=== PATIENT | male | born 1940 | race Caucasian/White ===

== ENCOUNTER 2021-11-23 11:50 | Day surgery (SDC) | payer OTHER ==
[2021-11-22 16:20] LABS: BASOPHILS % (AUTO) 0.2 % (0.0-5.0); EOSINOPHILS % (AUTO) 0.8 % (0.0-8.0); HEMATOCRIT 23.2 % (42-54); LYMPHOCYTES % (AUTO) 20.3 % (21.0-51.0); MEAN CORPUSCULAR HEMOGLOBIN 25.7 pg (27.0-33.0); MEAN CORPUSCULAR HGB CONC 31.5 g/dL (32.0-36.0); MEAN CORPUSCULAR VOLUME 81.7 fL (79-99); MONOCYTES % (AUTO) 6.3 % (3.0-13.0); NEUTROPHILS % (AUTO) 71.9 % (40.0-77.0); PLATELET COUNT (AUTO) 269 K/uL (130-400); RED BLOOD CELL COUNT(AUTO) 2.84 MIL/uL (4.50-6.20); RED CELL DISTRIBUTION WIDTH 17.5 % (11.0-15.5); WHITE BLOOD COUNT (AUTO) 9.7 K/uL (4.8-10.8)
[2021-11-22 16:34] LABS: INR 1.09 (0.85-1.15); PROTHROMBIN TIME 11.8 SEC (9.6-11.6)
[2021-11-22 16:35] LABS: PARTIAL THROMBOPLASTIN TIME 27.7 SEC (26.3-35.5)
[2021-11-22 17:01] LABS: CREATININE 1.6 mg/dL (0.5-1.5); POTASSIUM 3.5 mmol/L (3.5-5.1)
[~2021-11-23] VITALS: Ht 172.7 cm; Wt 98.7 kg
[2021-11-23] VITALS (13 sets, daily range): BP systolic 108–136; BP diastolic 25–44
[~2021-11-23 11:50] MED LIST: 0.9% NACL 500ML IV.SOLN 500 ML IV SCH; ALLO300T2 PO; ASCO500C18 PO; ATOR10TA PO; BUME2TAB5 PO; CETI-89 PO; DOXA4TAB3 PO; FERR324T4 PO; FOLI0.8T22 PO; GABA600T10 PO; HYDR100T27 PO; INSLAN SQ; INSNOV SQ; ISOS30TA92 PO; LEVO25TA9 PO; LOSA100T2 PO; MAGNESIUM PO; NIFE90TA65 PO; OMEG-125 PO; PANT40TA55 PO; POTA-202 PO; VIT-32 PO; VITA1TAB22 PO; VITAMIN B12 PO; VITAMIN C PO; VITAMIN D3 PO
[2021-11-23] MEDS ORDERED: 0.9%NACL 1000ML 1,000 ML IV ONE (12:20)
[2021-11-23] MEDS ORDERED: FLUMAZENIL 0.1MG/1ML 5ML VIAL IV ONE (12:41)
[2021-11-23] MEDS ORDERED: LIDOCAINE HCL 2% VISCOUS 15 ML UDCUP ONE (12:41)
[2021-11-23] MEDS ORDERED: MIDAZOLAM HCL 1 MG/ML 2ML VIAL ONE (12:42)
[2021-11-23] MEDS ORDERED: NALOXONE HCL 0.4 MG/1 ML ML ONE (12:42)
[2021-11-23] MEDS ORDERED: FENTANYL CITRATE PF 50 MCG/1 ML 2ML VIAL ONE (12:42)
== END 2021-11-23 14:40 | disposition home or self-care (01) ==
LOC: DAH 11:50
PROVIDERS: ATTEND Student in an Organized Health Care Education/Training Program
DX: I48.21 Permanent atrial fibrillation (principal); I08.1 Rheumatic disorders of both mitral and tricuspid valves; I25.10 Atherosclerotic heart disease of native coronary artery without angina pectoris; I44.1 Atrioventricular block, second degree; E11.9 Type 2 diabetes mellitus without complications; I10 Essential (primary) hypertension; E78.5 Hyperlipidemia, unspecified; E03.9 Hypothyroidism, unspecified; G47.33 Obstructive sleep apnea (adult) (pediatric); E66.8 Other obesity; Z79.82 Long term (current) use of aspirin; Z79.899 Other long term (current) drug therapy; Z82.49 Family history of ischemic heart disease and other diseases of the circulatory system; Z88.8 Allergy status to other drugs, medicaments and biological substances; Z98.890 Other specified postprocedural states; Z79.01 Long term (current) use of anticoagulants; Z95.1 Presence of aortocoronary bypass graft
CPT/HCPCS: 36415; 80048; 82948; 85025; 85610; 85730; 92960; 93005; 93312; 93325; A4215; A4216; A4221; A4222; A4223 ×3; A4606; A4657; A4663; J2250; J3010; J7030; 96374; 99152; 99153; J2310; J3490

== ENCOUNTER 2022-02-01 07:45 | Observation (INO) | payer OTHER ==
[2022-01-31 11:00] LABS: BASOPHILS % (AUTO) 0.2 % (0.0-5.0); EOSINOPHILS % (AUTO) 1.1 % (0.0-8.0); HEMATOCRIT 29.7 % (42-54); LYMPHOCYTES % (AUTO) 12.5 % (21.0-51.0); MEAN CORPUSCULAR HEMOGLOBIN 26.6 pg (27.0-33.0); MEAN CORPUSCULAR HGB CONC 30.3 g/dL (32.0-36.0); MEAN CORPUSCULAR VOLUME 87.9 fL (79-99); PLATELET COUNT (AUTO) 236 K/uL (130-400); RED BLOOD CELL COUNT(AUTO) 3.38 MIL/uL (4.50-6.20); RED CELL DISTRIBUTION WIDTH 21.5 % (11.0-15.5); WHITE BLOOD COUNT (AUTO) 8.4 K/uL (4.8-10.8)
[2022-01-31 11:12] LABS: CREATININE 1.7 mg/dL (0.5-1.5); POTASSIUM 3.8 mmol/L (3.5-5.1)
[2022-01-31 11:41] LABS: INR 1.04 (0.85-1.15); PROTHROMBIN TIME 11.3 SEC (9.6-11.6)
[2022-01-31 11:42] LABS: PARTIAL THROMBOPLASTIN TIME 28.7 SEC (26.3-35.5)
[2022-01-31 12:41] VITALS: BP 140/58
[2022-02-01] VITALS (12 sets, daily range): BP systolic 117–149; BP diastolic 46–62
[~2022-02-01] VITALS: Ht 172.7 cm; Wt 97.2 kg
[~2022-02-01 07:45] MED LIST changes: -0.9% NACL 500ML IV.SOLN 500 ML IV SCH; -FERR324T4 PO; +NIFE-40 PO; -NIFE90TA65 PO; -VITAMIN C PO
[2022-02-01] MEDS ORDERED: 0.9%NACL 1000ML 1,000 ML IV ONE (07:50)
[2022-02-01] MEDS ORDERED: IOHEXOL-350 75 ML VIAL IV ONE (10:21)
[2022-02-01] MEDS ORDERED: LIDOCAINE HCL 400MG/20ML VIAL ONE (10:21)
[2022-02-01] MEDS ORDERED: MIDAZOLAM HCL 1 MG/ML 2ML VIAL ONE (11:03)
[2022-02-01] MEDS ORDERED: FENTANYL CITRATE PF 50 MCG/1 ML 2ML VIAL ONE ×2 (11:05→11:09)
[2022-02-01] MEDS ORDERED: MEPERIDINE-PF 25 MG/ML SYG ONE ×2 (11:06→11:36)
[2022-02-01] MEDS ORDERED: HEPARIN 10,000 UNIT/10ML (1,000 UNIT/ML) VIAL ONE (11:50)
[2022-02-01] MEDS: INSULIN LISPRO 100 UNIT/ML 3ML SQ SCH (17:00)
[2022-02-01] MEDS ORDERED: DOXAZOSIN MESYLATE 2 MG TABLET PO SCH (21:00)
[2022-02-01] MEDS ORDERED: BUMETANIDE 2 MG PO SCH (21:00)
[2022-02-01] MEDS ORDERED: ATORVASTATIN 10 MG TABLET PO SCH (21:00)
[2022-02-01] MEDS ORDERED: INSULIN GLARGINE 100 UNITS/ML 10 ML VIAL SQ SCH (21:00)
[2022-02-01] MEDS ORDERED: BUMETANIDE 1 MG TAB PO SCH (21:00)
[2022-02-01] MEDS ORDERED: NIFEDIPINE ER 30 MG TAB PO SCH (21:00)
[2022-02-01] MEDS: FISH OIL 1000 MG/CAP PO SCH (22:10)
[2022-02-01] MEDS: KCL 20 MEQ ERTAB PO SCH (22:11)
[2022-02-01] MEDS: GABAPENTIN 300 MG CAPSULE PO SCH (22:12)
[2022-02-01] MEDS: HYDRALAZINE 25MG TABLET PO SCH (22:13)
[2022-02-01] MEDS: ASCORBIC ACID 500 MG TAB PO SCH (22:18)
[2022-02-02 03:34] VITALS: BP 130/52
[2022-02-02] MEDS ORDERED: LEVOTHYROXINE 25 MCG TABLET ONE (05:14)
[2022-02-02] MEDS ORDERED: LEVOTHYROXINE 25 MCG TABLET PO SCH (06:30)
[2022-02-02 06:55] VITALS: BP 144/53
[2022-02-02] MEDS: INSULIN LISPRO 100 UNIT/ML 3ML SQ SCH ×2 (07:31→11:33)
[2022-02-02] MEDS: ASCORBIC ACID 500 MG TAB PO SCH (08:21)
[2022-02-02] MEDS: HYDRALAZINE 25MG TABLET PO SCH (08:21)
[2022-02-02] MEDS: GABAPENTIN 300 MG CAPSULE PO SCH (08:27)
[2022-02-02] MEDS: FISH OIL 1000 MG/CAP PO SCH (08:27)
[2022-02-02] MEDS: KCL 20 MEQ ERTAB PO SCH (08:28)
[2022-02-02] MEDS ORDERED: ALLOPURINOL 300 MG TABLET PO SCH (09:00)
[2022-02-02] MEDS ORDERED: INSULIN GLARGINE 100 UNITS/ML 10 ML VIAL SQ SCH (09:00)
[2022-02-02] MEDS ORDERED: BUMETANIDE 4 MG PO SCH (09:00)
[2022-02-02] MEDS ORDERED: Vitamin B Complex/Vit C/Folic Acid PO SCH (09:00)
[2022-02-02] MEDS ORDERED: CETIRIZINE HCL 5 MG TABLET PO SCH (09:00)
[2022-02-02] MEDS ORDERED: ISOSORBIDE MONO 30MG SR TAB PO SCH (09:00)
[2022-02-02] MEDS ORDERED: BUMETANIDE 1 MG TAB PO SCH (09:00)
[2022-02-02] MEDS ORDERED: PANTOPRAZOLE 40 MG TAB DR PO SCH (09:00)
[2022-02-02] MEDS ORDERED: NON-FORMULARY MEDICATION 1 EACH (Cetirizine HCl (Zyrtec) 10 MG) PO SCH (09:00)
[2022-02-02 11:25] VITALS: BP 142/65
[2022-02-02] MEDS ORDERED: ONDANSETRON 4MG INJ IVP PRN (11:30)
[2022-02-02] MEDS ORDERED: LOSARTAN 100 MG TABLET PO SCH (12:00)
== END 2022-02-02 13:05 | disposition home or self-care (01) ==
LOC: DAH 07:45 → DAHIP 07:46 → DAH 07:46 → 4BH 18:37
PROVIDERS: ADMIT Internal Medicine Cardiovascular Disease; ATTEND Internal Medicine Cardiovascular Disease
DX: I49.5 Sick sinus syndrome (principal); I48.21 Permanent atrial fibrillation; I25.10 Atherosclerotic heart disease of native coronary artery without angina pectoris; Z79.899 Other long term (current) drug therapy
CPT/HCPCS: 33274; 36415; 71045; 80048; 82948 ×5; 85025; 85610; 85730; 93005 ×2; 96372; 96374; A4215; A4216; A4221; A4222; A4223 ×3; A4606; A4663; C1769 ×2; C1785; C1894; G0378 ×24; J1644 ×3; J2175 ×2; J2250; J2405; J3010; J3490; J7030; Q9967; 99156; 99157

== ENCOUNTER → 2023-06-07 | Outpatient (CLI) | payer OTHER ==
[~2023-06-07] MED LIST changes: -LOSA100T2 PO; +LOSA100T3 PO
== END | disposition home or self-care (01) ==
LOC: SHCH 08:33
PROVIDERS: ATTEND Internal Medicine Cardiovascular Disease
DX: I87.2 Venous insufficiency (chronic) (peripheral) (principal)
CPT/HCPCS: 93970

== ENCOUNTER 2024-10-16 11:33 | Day surgery (SDC) | payer OTHER ==
--- NOTE | 2024-10-14 12:48 | EKG ---
[facility] Test Date: 2024-10-14 Test Time: 13:45:37 Pat Name: STEPHEN RILLTON Department[facility] Room: Gender: M Contamination Consultant: [id number] : 1940 Requested By: YOLANDA LAM Order Number: [id number] Reading MD: Fermin Obregon Measurements Intervals [place] Rate: 42 P: 0 MT: 0 QRS: 7 QRSD: 96 T: 24 QT: 536 QTc: 447 Interpretive Statements Junctional bradycardia to 42 bpm Compared to ECG 02/01/2022 13:25:17 Ventricular-paced complex(es) or rhythm no longer present Electronically Signed On 10-14-2024 19:19:22 ROOFING APPRENTICE by Fermin Obregon Please click the below link to view image of tracing.
[2024-10-14 12:53] LABS: BASOPHILS # (AUTO) 0.05 K/uL (0.00-0.20); BASOPHILS % (AUTO) 0.4 % (0.0-5.0); EOSINOPHILS # (AUTO) 0.11 K/uL (0.00-0.70); EOSINOPHILS % (AUTO) 0.9 % (0.0-8.0); HEMATOCRIT 37.1 % (42-54); LYMPHOCYTES # (AUTO) 1.4 K/uL (1.0-4.8); LYMPHOCYTES % (AUTO) 11.7 % (21.0-51.0); MEAN CORPUSCULAR HEMOGLOBIN 29.7 pg (27.0-33.0); MEAN CORPUSCULAR HGB CONC 31.5 g/dL (32.0-36.0); MEAN CORPUSCULAR VOLUME 94.2 fL (79-99); MONOCYTES # (AUTO) 0.8 K/uL (0.1-1.0); MONOCYTES % (AUTO) 6.8 % (3.0-13.0); NEUTROPHILS # (AUTO) 9.8 K/uL (1.8-7.7); NEUTROPHILS % (AUTO) 79.4 % (40.0-77.0); PLATELET COUNT (AUTO) 350 K/uL (130-400); RED BLOOD CELL COUNT(AUTO) 3.94 MIL/uL (4.50-6.20); RED CELL DISTRIBUTION WIDTH 13.9 % (11.0-15.5); WHITE BLOOD COUNT (AUTO) 12.3 K/uL (4.8-10.8)
[2024-10-14 12:55] VITALS: BP 126/50; PULSE 45; RESP 18; TEMP 97.1
[2024-10-14 13:05] LABS: CREATININE 1.7 mg/dL (0.5-1.3); POTASSIUM 3.7 mmol/L (3.5-5.1)
[2024-10-14 13:08] LABS: INR 1.06 (0.85-1.15); PROTHROMBIN TIME 11.4 SEC (9.6-11.6)
[2024-10-14 13:09] LABS: PARTIAL THROMBOPLASTIN TIME 28.7 SEC (26.3-35.5)
--- NOTE | 2024-10-15 10:00 | NUR ---
RE: LABS REPORTED CREAT 1.[address] RESULTS [address] DR LAM, PATIENT ASYMPTOMATIC. RECEIVED ORDERS TO RECHECK CBC IN AM.
[~2024-10-16] VITALS: Ht 172.7 cm; Wt 92.5 kg
[2024-10-16] VITALS (7 sets, daily range): BP systolic 118–157; BP diastolic 48–67; PULSE 44–60; RESP 13–18; TEMP 97.4–97.9
[~2024-10-16 11:33] MED LIST changes: +ALBU18HF7 IH; -ALLO300T2 PO; +ALLO300T27 PO; -ASCO500C18 PO; +CARB-39 PO; +FERS325 PO; +GABA300C PO; -GABA600T10 PO; +HYDR100T15 PO; -HYDR100T27 PO; +LOSA-420 PO; -LOSA100T3 PO; +MAGN400T53 PO; -MAGNESIUM PO; +MELA3TAB41 PO; +NIFE-39 PO; -NIFE-40 PO; -POTA-202 PO; +SPIR25TA6 PO; -VIT-32 PO; +VIT1CAPS47 PO; -VITA1TAB22 PO; -VITAMIN D3 PO
[2024-10-16] MEDS: 0.9%NACL 1000ML 1,000 ML IV SCH (12:18)
[2024-10-16 12:26] LABS: BASOPHILS # (AUTO) 0.04 K/uL (0.00-0.20); BASOPHILS % (AUTO) 0.4 % (0.0-5.0); EOSINOPHILS # (AUTO) 0.06 K/uL (0.00-0.70); EOSINOPHILS % (AUTO) 0.5 % (0.0-8.0); HEMATOCRIT 34.2 % (42-54); IMMATURE GRANULOCYTE ABSOLUTE 0.06 K/uL (0-1); LYMPHOCYTES # (AUTO) 1.5 K/uL (1.0-4.8); LYMPHOCYTES % (AUTO) 13.1 % (21.0-51.0); MEAN CORPUSCULAR HEMOGLOBIN 30.4 pg (27.0-33.0); MEAN CORPUSCULAR VOLUME 91.9 fL (79-99); MONOCYTES # (AUTO) 0.7 K/uL (0.1-1.0); MONOCYTES % (AUTO) 6.7 % (3.0-13.0); NEUTROPHILS # (AUTO) 8.8 K/uL (1.8-7.7); NEUTROPHILS % (AUTO) 78.8 % (40.0-77.0); PLATELET COUNT (AUTO) 370 K/uL (130-400); RED BLOOD CELL COUNT(AUTO) 3.72 MIL/uL (4.50-6.20); WHITE BLOOD COUNT (AUTO) 11.1 K/uL (4.8-10.8)
[2024-10-16] MEDS ORDERED: LIDOCAINE HCL 1% MDV 50ML VIAL ONE (12:49)
[2024-10-16] MEDS ORDERED: ceFAZolin SODIUM 1 GM VIAL ONE (12:49)
[2024-10-16] MEDS ORDERED: IOHEXOL-350 75 ML VIAL IV ONE (12:50)
[2024-10-16] MEDS ORDERED: BUPIvacaine/PF 0.25% 30ML VIAL IJ ONE (12:50)
[2024-10-16] MEDS ORDERED: MIDAZOLAM HCL 1 MG/ML 2ML VIAL ONE ×4 (13:25→15:19)
[2024-10-16] MEDS ORDERED: MEPERIDINE-PF 25 MG/ML SYG ONE ×4 (13:25→15:19)
[2024-10-16] MEDS ORDERED: TRAM50TA4 PO (15:48)
[2024-10-16] MEDS ORDERED: acetaMINOPHEN 500 MG TABLET PO PRN (16:00)
[2024-10-16] MEDS ORDERED: acetaMINOPHEN WITH coDEINE 1 TAB TAB PO PRN (16:00)
--- NOTE | 2024-10-16 16:05 | NUR ---
PATIENT RETURNED FROM [facility] VIA BED BY RASHAUN BOYD. PATIENT AAOX3,VITAL SIGNS STABLE. DENIES PAIN AT THIS TIME. PATIENT S/P PPM IMPLANT TO LEFT UPPER CHEST WALL. LEFT ARM IN SLING. DRESSING TO LEFT ARM IS DRY/INTACT, NO BLEEDING OR HEMATOMA NOTED.
--- NOTE | 2024-10-16 17:09 | HMCIMG ---
PORTABLE CHEST RADIOGRAPH INDICATION: PPM COMPARISON: 02/02/2022 FINDINGS: conveyor monitor leads overlie the field of view. Median sternotomy wires are in appropriate alignment. Left sided dual chamber pacer and continuous leads remain in customary position. Heart is slightly enlarged. Cardiac rhythm monitor noted. Central pulmonary vascularity appears enlarged. No abnormal pulmonary parenchymal opacity or consolidation identified. No significant pleural effusion noted. No pneumothorax detected. IMPRESSION: Mild cardiac enlargement and central pulmonary vascular congestion.
--- NOTE | 2024-10-16 17:35 | NUR ---
RE: CXR REPORTED CXR RESULTS/IMAGE TO DR LAM, NO NEW ORDERS. PROCEED TO DISCHARGE HOME ORDERED.
--- NOTE | 2024-10-16 17:54 | NUR ---
PATIENT DISCHARGED FROM FACILITY VIA WHEELCHAIR BY RASHAUN HOPKINS. PATIENT ASSISTED INTO PRIVATE VEHICLE DRIVEN BY FRIEND
== END 2024-10-16 17:54 | disposition home or self-care (01) ==
LOC: DAH 11:33
PROVIDERS: ATTEND Internal Medicine Cardiovascular Disease
DX: Z45.010 Encounter for checking and testing of cardiac pacemaker pulse generator [battery] (principal); I44.2 Atrioventricular block, complete; I48.21 Permanent atrial fibrillation; I10 Essential (primary) hypertension; E11.9 Type 2 diabetes mellitus without complications; I48.0 Paroxysmal atrial fibrillation; E03.9 Hypothyroidism, unspecified; G47.33 Obstructive sleep apnea (adult) (pediatric); Z88.8 Allergy status to other drugs, medicaments and biological substances; I25.10 Atherosclerotic heart disease of native coronary artery without angina pectoris; Z95.1 Presence of aortocoronary bypass graft; Z90.49 Acquired absence of other specified parts of digestive tract; Z98.890 Other specified postprocedural states; Z98.49 Cataract extraction status, unspecified eye; Z79.4 Long term (current) use of insulin; Z79.899 Other long term (current) drug therapy
CPT/HCPCS: 80048; 85025 ×2; 85610; 85730; 36415 ×2; 93005; 33208; 82948; 71045; C1785; C1898 ×2; C1894; J0690; J7030; J0665; J2250 ×4; J2175 ×4; J3490; Q9967; A4215; A4222; A4221; A4663; A4216; A4606; A4223 ×3; 99156; 99157